=== PATIENT | female | born 1980 | race Caucasian/White ===

== ENCOUNTER 2021-02-25 14:36 | Emergency (ER) | payer OTHER ==
[2021-02-25] MEDS ORDERED: Sodium Chloride 0.9% 1000 ML 1,000 ML IV STA (14:43)
[2021-02-25] MEDS ORDERED: Zofran 4 MG/2 ML VIAL IV ONE (14:43)
[2021-02-25] MEDS ORDERED: Hydromorphone 1 mg/ml Injection IV ONE (14:43)
--- NOTE | 2021-02-25 14:43 | ERPHSYRPT ---
- History of Present Illness Time Seen by Provider: 02/25/21 14:43 Historian: patient Exam Limitations: no limitations Physician History: This is a 40-year-old white female who has had a history of recurrent ovarian cyst in the past and tends to occur when her menstrual period started. She noticed the pain beginning yesterday. There is been no associated vomiting or di arrhea. She then had vaginal spotting today but the pain was much worse than typical. She denies fever she denies dysuria and she denies hematuria. She has had no cough. She has had no chills. She has no myalgias or arthralgias. The pain is in the bilateral lower quadrant suprapubic region. She states that the pain is sharp and stabbing. Timing/Duration: yesterday, sudden, worse Activities at Onset: none Quality: sharpness, stabbing Abdominal Pain Onset Location: RLQ, LLQ, suprapubic Pain Radiation: no radiation Severity of Pain-Max: moderate Severity of Pain-Current: moderate Previous symptoms: same symptoms as today (But worse today) Allergies/Adverse Reactions: No Known Drug Allergies Allergy (Unverified 10/25/14 15:50) Home Medications: Bupropion HCl [Wellbutrin Xl] 300 mg PO DAILY 08/15/16 [History] Ibuprofen 800 mg PO DAILY 08/15/16 [History] clonazePAM [Klonopin] 2 mg PO BID 08/15/16 [History] Hx Tetanus, Diphtheria Vaccination/Date Given: No Hx Influenza Vaccination/Date Given: No Hx Pneumococcal Vaccination/Date Given: No Travel Risk - International Travel Have you traveled outside of the country in past 3 weeks: No - Coronavirus Screening Are you exhibiting any of the following symptoms?: No Close contact with a COVID-19 positive Pt in past 14-21 Days: No - Review of Systems Constitutional: No Symptoms Eyes: No Symptoms Ears, Nose, & Throat: No Symptoms Respiratory: No Symptoms Cardiac: No Symptoms Abdominal/Gastrointestinal: Abdominal Pain Genitourinary Symptoms: No Symptoms, Other (Patient is on her menstrual period at this time) Musculoskeletal: No Symptoms Skin: No Symptoms Neurological: No Symptoms Psychological: No Symptoms Endocrine: No Symptoms Hematologic/Lymphatic: No Symptoms Immunological/Allergic: No Symptoms All Other Systems: Reviewed and Negative - Past Medical History Pertinent Past Medical History: No Neurological History: No Pertinent History Cardiac History: No Pertinent History Respiratory History: No Pertinent History Endocrine Medical History: No Pertinent History Musculoskeletal History: No Pertinent History - Past Surgical History Past Surgical History: Yes Female Surgical History: Section - Social History Smoking Status: Never smoker Drug Use: none - Nursing Vital Signs Nursing Vital Signs: Initial Vital Signs Temperature 98 F 02/25/21 14:41 Pulse Rate 83 02/25/21 14:41 Blood Pressure 166/97 02/25/21 14:41 O2 Sat by Pulse Oximetry 99 02/25/21 14:41 Pain Scale Pain Intensity 6 - Physical Exam General Appearance: no apparent distress, alert, anxiety Eye Exam: PERRL/EOMI, eyes nml inspection Ears, Nose, Throat Exam: normal ENT inspection, moist mucous membranes Neck Exam: normal inspection, non-tender, supple, full range of motion Respiratory Exam: normal breath sounds, lungs clear, airway intact, No chest tenderness, No respiratory distress Cardiovascular Exam: regular rate/rhythm, normal heart sounds, normal peripheral pulses Gastrointestinal/Abdomen Exam: soft, normal bowel sounds, tenderness (Bilateral lower quadrants and suprapubic region), guarding Pelvic Exam: not done Rectal Exam: not done Back Exam: normal inspection, normal range of motion, CVA tenderness, vertebral tenderness Extremity Exam: normal inspection, normal range of motion, pelvis stable Neurologic Exam: alert, oriented x 3, cooperative, lining strap closer II-XII nml as tested, normal mood/affect, nml cerebellar function, nml station & gait, sensation nml Skin Exam: normal color, warm, dry Lymphatic Exam: No adenopathy SpO2 Interpretation: normal O2 Delivery: Room Air - Course Nursing assessment & vital signs reviewed: Yes Ordered Tests: Active Orders 24 hr Category Date Time Status IV Insertion STAT Care 02/25/21 14:43 Active ABDOMEN AND PELVIS W/0 CONTRAS [CT] Stat Exams 02/25/21 14:44 Taken AMYLASE Stat Lab 02/25/21 14:51 Completed CBC W DIFF Stat Lab 02/25/21 14:51 Completed CMP Stat Lab 02/25/21 14:51 Completed LIPASE Stat Lab 02/25/21 14:51 Completed Lactic Acid Stat Lab 02/25/21 14:43 Completed UA W/RFX UR CULTURE Stat Lab 02/25/21 14:49 Completed Medication Summary Discontinued Medications Generic Name Dose Route Start Last Admin Trade Name Freq PRN Reason Stop Dose Admin Hydromorphone HCl 1 mg 02/25/21 14:43 02/25/21 14:53 Hydromorphone 1 Mg/Ml Injection IV 02/25/21 14:44 1 mg STAT ONE Administration Hydromorphone HCl Confirm 02/25/21 14:50 Hydromorphone 1 Mg/Ml Injection Administered 02/25/21 14:51 Dose 1 mg .ROUTE .STK-MED ONE Sodium Chloride 1,000 mls @ 999 mls/hr 02/25/21 14:43 02/25/21 16:08 Sodium Chloride 0.9% 1000 Ml IV 02/25/21 15:43 Infused .Q1H1M STA Infusion Sodium Chloride Confirm 02/25/21 14:50 Sodium Chloride 0.9% 1000 Ml Administered 02/25/21 14:51 Dose 1,000 mls @ ud .ROUTE .STK-MED ONE Ondansetron HCl 4 mg 02/25/21 14:43 02/25/21 14:53 Zofran 4 Mg/2 Ml Vial IV 02/25/21 14:44 4 mg STAT ONE Administration Ondansetron HCl Confirm 02/25/21 14:50 Zofran 4 Mg/2 Ml Vial Administered 02/25/21 14:51 Dose 4 mg .ROUTE .STK-MED ONE Lab/Rad Data: Laboratory Result Diagrams 02/25/21 14:51 02/25/21 14:51 Laboratory Results 02/25/21 02/25/21 02/25/21 Range/Units 14:51 14:51 14:49 WBC 8.3 (4.0-10.5) K/mm3 RBC 4.55 (4.1-5.4) M/mm3 Hgb 14.3 (12.0-16.0) gm/dl Hct 43.8 (35-47) % MCV 96.3 (78-100) fl MCH 31.4 (26-32) pg MCHC 32.6 (32-36) g/dl RDW 12.8 (11.5-14.0) % Plt Count 353 (150-450) K/mm3 MPV 8.6 (7.5-11.0) fl Gran % 58.7 (36.0-66.0) % Eos # (Auto) 0.08 (0-0.5) Absolute Lymphs (auto) 2.62 (1.0-4.6) Absolute Monos (auto) 0.69 (0.0-1.3) Lymphocytes % 31.6 (24.0-44.0) % Monocytes % 8.3 (0.0-12.0) % Eosinophils % 1.0 (0.00-5.0) % Basophils % 0.4 (0.0-0.4) % Absolute Granulocytes 4.87 (1.4-6.9) Basophils # 0.03 (0-0.4) Sodium 139 (137-145) mmol/L Potassium 3.8 (3.5-5.1) mmol/L Chloride 103 (98-107) mmol/L Carbon Dioxide 25 (22-30) mmol/L Anion Gap 15.4 H (5-15) MEQ/L BUN 11 (7-17) mg/dL Creatinine 0.65 (0.52-1.04) mg/dL Estimated GFR > 60.0 ML/MIN Glucose 99 (74-106) mg/dL Lactic Acid (0.4-2.0) Calcium 10.2 (8.4-10.2) mg/dL Total Bilirubin 0.50 (0.2-1.3) mg/dL AST 24 (14-36) U/L ALT 18 (0-35) U/L Alkaline Phosphatase 69 (38-126) U/L Serum Total Protein 8.3 H (6.3-8.2) g/dL Albumin 4.9 (3.5-5.0) g/dL Amylase 62 (30-110) U/L Lipase 51 (23-300) U/L Urine Color YELLOW (YELLOW) Urine Appearance CLEAR (CLEAR) Urine pH 6.0 (5-6) Ur Specific [place] 1.019 (1.005-1.025) Urine Protein NEGATIVE (Negative) Urine Ketones NEGATIVE (NEGATIVE) Urine Blood MODERATE (0-5) Ej/ul Urine Nitrite NEGATIVE (NEGATIVE) Urine Bilirubin NEGATIVE (NEGATIVE) Urine Urobilinogen NEGATIVE (0-1) mg/dL Ur Leukocyte Esterase NEGATIVE (NEGATIVE) Urine WBC (Auto) NONE (0-5) /HPF Urine RBC (Auto) 6-10 (0-2) /HPF U Epithel Cells (Auto) NONE (FEW) /HPF Urine Bacteria (Auto) NONE (NEGATIVE) /HPF Urine Culture Reflexed NO (NO) Urine Glucose NEGATIVE (NEGATIVE) mg/dL 02/25/21 Range/Units 14:43 WBC (4.0-10.5) K/mm3 RBC (4.1-5.4) M/mm3 Hgb (12.0-16.0) gm/dl Hct (35-47) % MCV (78-100) fl MCH (26-32) pg MCHC (32-36) g/dl RDW (11.5-14.0) % Plt Count (150-450) K/mm3 MPV (7.5-11.0) fl Gran % (36.0-66.0) % Eos # (Auto) (0-0.5) Absolute Lymphs (auto) (1.0-4.6) Absolute Monos (auto) (0.0-1.3) Lymphocytes % (24.0-44.0) % Monocytes % (0.0-12.0) % Eosinophils % (0.00-5.0) % Basophils % (0.0-0.4) % Absolute Granulocytes (1.4-6.9) Basophils # (0-0.4) Sodium (137-145) mmol/L Potassium (3.5-5.1) mmol/L Chloride (98-107) mmol/L Carbon Dioxide (22-30) mmol/L Anion Gap (5-15) MEQ/L BUN (7-17) mg/dL Creatinine (0.52-1.04) mg/dL Estimated GFR ML/MIN Glucose (74-106) mg/dL Lactic Acid 2.2 H (0.4-2.0) Calcium (8.4-10.2) mg/dL Total Bilirubin (0.2-1.3) mg/dL AST (14-36) U/L ALT (0-35) U/L Alkaline Phosphatase (38-126) U/L Serum Total Protein (6.3-8.2) g/dL Albumin (3.5-5.0) g/dL Amylase (30-110) U/L Lipase (23-300) U/L Urine Color (YELLOW) Urine Appearance (CLEAR) Urine pH (5-6) Ur Specific [place] (1.005-1.025) Urine Protein (Negative) Urine Ketones (NEGATIVE) Urine Blood (0-5) Ej/ul Urine Nitrite (NEGATIVE) Urine Bilirubin (NEGATIVE) Urine Urobilinogen (0-1) mg/dL Ur Leukocyte Esterase (NEGATIVE) Urine WBC (Auto) (0-5) /HPF Urine RBC (Auto) (0-2) /HPF U Epithel Cells (Auto) (FEW) /HPF Urine Bacteria (Auto) (NEGATIVE) /HPF Urine Culture Reflexed (NO) Urine Glucose (NEGATIVE) mg/dL - Progress Progress: improved, pain not gone completely, re-examined Progress Note: 02/25/21 17:09 CAT scan of the abdomen pelvis shows no acute intra abdominal or intrapelvic abnormalities Counseled pt/family regarding: lab results, diagnosis, need for follow-up, rad results - Departure Departure Disposition: Home Clinical Impression: Abdominal pain Condition: Stable Critical Care Time: No Referrals: BAM [facility]ERS [Primary Care Provider] - Additional Instructions: Add ibuprofen to the [facility] prescription I wrote for you today. Follow-up with your primary care physician or chain machine operator for further management Prescriptions: Hydrocodone/APAP 5/325 [[facility] 5/325 mg] 1 each PO Q8H PRN PRN #6 tablet MDD 3 PRN Reason: Pain
[2021-02-25] MEDS ORDERED: Sodium Chloride 0.9% 1000 ML 1,000 ML ONE (14:50)
[2021-02-25] MEDS ORDERED: Hydromorphone 1 mg/ml Injection ONE (14:50)
[2021-02-25] MEDS ORDERED: Zofran 4 MG/2 ML VIAL ONE (14:50)
[2021-02-25 14:56] LABS: Absolute Neutrophil Ct (ANC) 4.87 (1.4-6.9); BASOPHIL % 0.4 % (0.0-0.4); Basophil (Absolute #) 0.03 (0-0.4); Eosinophil (Absolute #) 0.08 (0-0.5); Hematocrit 43.8 % (35-47); Hemoglobin 14.3 gm/dl (12.0-16.0); Lymphocyte (Absolute #) 2.62 (1.0-4.6); Lymphocytes % 31.6 % (24.0-44.0); Mean Cell Volume 96.3 fl (78-100); Mean Corpuscular Hemoglobin 31.4 pg (26-32); Mean Corpuscular Hgb Concent. 32.6 g/dl (32-36); Mean Platelet Volume 8.6 fl (7.5-11.0); Monocyte (Absolute #) 0.69 (0.0-1.3); Monocytes % 8.3 % (0.0-12.0); Neutrophil % 58.7 % (36.0-66.0); Platelet Count 353 K/mm3 (150-450); Red Blood Count 4.55 M/mm3 (4.1-5.4); Red Cell Distribution Width 12.8 % (11.5-14.0); White Blood Count 8.3 K/mm3 (4.0-10.5)
[2021-02-25 15:01] LABS: Appearance CLEAR (CLEAR); Bilirubin NEGATIVE (NEGATIVE); Blood MODERATE Ery/ul (0-5); Glucose NEGATIVE (NEGATIVE); Ketones NEGATIVE (NEGATIVE); Leukocyte Esterase NEGATIVE (NEGATIVE); Nitrite NEGATIVE (NEGATIVE); Protein,Urine Dip NEGATIVE (Negative); Specific Gravity 1.019 (1.005-1.025); Urobilinogen NEGATIVE mg/dL (0-1)
[2021-02-25 15:04] LABS: ALBUMIN 4.9 g/dL (3.5-5.0); ALKALINE PHOSPHATASE 69 U/L (38-126); AMYLASE 62 U/L (30-110); ANION GAP 15.4 MEQ/L (5-15); BLOOD UREA NITROGEN 11 mg/dL (7-17); CHLORIDE 103 mmol/L (98-107); Calcium 10.2 mg/dL (8.4-10.2); Carbon Dioxide 25 mmol/L (22-30); Creatinine 1 0.65 mg/dL (0.52-1.04); EST GLOMERULAR FILTRATION RATE > 60.0 ML/MIN; Glucose 99 mg/dL (74-106); LIPASE 51 U/L (23-300); Potassium 3.8 mmol/L (3.5-5.1); SGOT/AST 24 U/L (14-36); SGPT/ALT 18 U/L (0-35); SODIUM 139 mmol/L (137-145); Total Protein 8.3 g/dL (6.3-8.2)
[2021-02-25 17:31] VITALS: BP 132/89; PULSE 78; O2SAT 98
--- NOTE | 2021-02-25 22:57 | XRAY ---
Indication: Lower abdomen pain 2 days. Diarrhea. Multiple contiguous images obtained through the abdomen and pelvis without contrast. Comparison: None Lung bases are clear. Heart is not enlarged. Noncontrasted stomach and bowel loops appear nonobstructed. Normal appendix. No free fluid/air. Splenic calcified granuloma. Remaining liver, gallbladder, pancreas, spleen, adrenal glands, kidneys, ureters, bladder, uterus, and aorta are unremarkable for noncontrast exam. Osseous structures intact with moderate L5-S1 degenerative disc disease. No ventral or inguinal hernias. Impression: 1. L5-S1 degenerative disc disease and splenic calcified granuloma. 2. Remaining CT abdomen/pelvis without contrast exam is negative.
== END 2021-02-25 17:41 | disposition home or self-care (01) ==
LOC: ED 14:36
DX: R10.32 Left lower quadrant pain (principal); R10.31 Right lower quadrant pain
CPT/HCPCS: 36000; 36415; 74176; 80053; 81001; 82150; 83605; 83690; 85025; 96360; 96374; 96375; 99284; J1170; J2405